=== PATIENT | male | born 1975 ===

== ENCOUNTER 2019-06-21 12:59 | Emergency (ER) | payer OTHER ==
[~2019-06-21] VITALS: Ht 167.6 cm; Wt 96.2 kg
[~2019-06-21 12:59] MED LIST: PEPCID40 MG; PEPCID40 MG PO; ZOFRAN4 MG PO
== END 2019-06-21 18:07 | disposition home or self-care (01) ==
LOC: ER 12:59
DX: R42 Dizziness and giddiness (principal); I95.9 Hypotension, unspecified